=== PATIENT | male | born 1965 | race Caucasian/White ===

== ENCOUNTER 2018-01-09 12:37 | Emergency (ER) | payer OTHER, SELFPAY ==
[2018-01-09 12:38] VITALS: BP 138/81; PULSE 79; RESP 12; TEMP 36.9; BMI 26.6
--- NOTE | 2018-01-09 13:07 | ED.VISSUMM ---
- ER Visit Summary Date of Service: 01/09/18 Chief Complaint: [] Right thumb injury seen at [facility] urgent care History of Present Illness: The patient is a 52 M [] based he reports he jammed his right thumb into an object he had what sounds like a subungual hematoma involving the thumb nailbed he was seen in [facility] urgent care had x-rays that were negative, had trephination of nail bed he reports he has persistent swelling over the distal phalanx, he was not sure what to do so he came to the emergency room. 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 Physical Examination: [] The right thumb there is contusion over the distal phalanx the nail appears to have been trephinated there is no subungual hematoma the pad of the thumb is normal the IP joint flexion extension DIP joint flexion extension fully intact thumb opposition and full range of motion to the thumb without any discomfort but when he business support and opposes against the other digits he has pain there is no obvious instability deformity the skin is intact but contused over the distal phalanx neurovascular function to the hand in the hand fingers otherwise are unremarkable and normal the wrist is nontender Test Results: [] Emergency Department Course and Treatment: [] He assures me the x-ray was done and was negative I explained to him we could repeat the x-ray he does not wish to have that done there is no indication that he would require trephination is no signs of infection this appears to be a traumatic contusion I explained to him the concept of an occult injury at this time is placed in the thumb splint ice elevation he has pain meds using at home and to follow-up with Dr. olvera or orthopedics next few days for further management to evaluate for again possibility of occult injury Treatment Plan: [] Disposition: [] Stable home Impression: []rt thumb contusion This note was generated with [employer] dictation software. It may contain incorrect words, spelling, and punctuation that were not noted in review of the chart prior to signing ED Disposition - Plan for ED Patient: Chief Complaint: Wound Referrals: Care Physician,No Primary [Primary Care Provider] -
--- NOTE | 2018-01-09 13:10 | ED.DCSUM_ITS ---
- ER Visit Summary Date of Service: 01/09/18 Chief Complaint: [] Right thumb injury seen at [facility] urgent care History of Present Illness: The patient is a 52 M [] based he reports he jammed his right thumb into an object he had what sounds like a subungual hematoma involving the thumb nailbed he was seen in [facility] urgent care had x-rays that were negative, had trephination of nail bed he reports he has persistent swelling over the distal phalanx, he was not sure what to do so he came to the emergency room. 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 and opposes against the other digits he has pain there is no obvious instability deformity the skin is intact but contused over the distal phalanx neurovascular function to the hand in the hand fingers otherwise are unremarkable and normal the wrist is nontender Test Results: [] Emergency Department Course and Treatment: [] He assures me the x-ray was done and was negative I explained to him we could repeat the x-ray he does not wish to have that done there is no indication that he would require trephination is no signs of infection this appears to be a traumatic contusion I explained to him the concept of an occult injury at this time is placed in the thumb splint ice elevation he has pain meds using at home and to follow-up with Dr. olvera or orthopedics next few days for further management to evaluate for again possibility of occult injury Treatment Plan: [] Disposition: [] Stable home Impression: []rt thumb contusion This note was generated with [employer] dictation software. It may contain incorrect words, spelling, and punctuation that were not noted in review of the chart prior to signing ED Disposition - Plan for ED Patient: Chief Complaint: Wound Referrals: Care Physician,No Primary [Primary Care Provider] -
--- NOTE | 2018-01-09 13:10 | ED.DEP ---
ED Disposition - Plan for ED Patient: Chief Complaint: Wound Instructions: ED Contusion Finger Referrals: Care Physician,No Primary [Primary Care Provider] - Jovanni Becker MD [STAFF PHYSICIAN] - Henry Arteaga MD [STAFF PHYSICIAN] -
[2018-01-09 13:20] VITALS: BP 119/77; PULSE 81; RESP 17; O2SAT 96
== END 2018-01-09 13:31 | disposition home or self-care (01) ==
LOC: ED 13:30
PROVIDERS: Emergency Provider Emergency Medicine
DX: S60.011A Contusion of right thumb without damage to nail, initial encounter (principal); W22.8XXA Striking against or struck by other objects, initial encounter; Y93.9 Activity, unspecified; Y92.9 Unspecified place or not applicable; Y99.9 Unspecified external cause status; Z79.899 Other long term (current) drug therapy
CPT/HCPCS: 99282

== ENCOUNTER → 2018-01-15 08:26 | Outpatient (CLI) | payer OTHER, SELFPAY ==
--- NOTE | 2018-01-15 08:27 | RAD_ITS ---
STUDY: X-RAY - RIGHT HAND, ATTENTION FIRST FINGER REASON FOR EXAM: Male, 52 years old. Smash injury. Pain. TECHNIQUE: 3 view(s) of the finger were obtained. COMPARISON: None. FINDINGS: There is osteoarthrosis of the first carpometacarpal, metacarpal phalangeal and interphalangeal joints. There is a radiopaque foreign body projected dorsally at the DIP joint measuring approximately 3 mm in longest diameter best seen on the lateral view. There is soft tissue ossification of the soft tissues adjacent to the midportion of the distal phalanx. RAD/Finger(s) Min 2 Views IMPRESSION: Osteoarthritic changes with radiopaque foreign body and soft tissue ossification. No acute osseous abnormality. Electronically Signed: Julian Carver MD at 17:59 EDT , Service support ,
== END ==
PROVIDERS: Visit Provider Orthopaedic Surgery
DX: M79.644 Pain in right finger(s) (principal)
CPT/HCPCS: 73140

== ENCOUNTER 2018-02-02 15:00 | Outpatient (RCR) | payer OTHER, SELFPAY ==
--- NOTE | 2018-01-19 16:04 | HP.OTEVAL ---
Patient's Visit Information SAVANNA PEPE is a 52 year old M, referred to Occupational Therapy by Rowena Temple DO, with a diagnosis of right thumb nail injury hematoma. Date of Evaluation: 01/19/18 Occupational Therapist: Noris Scott, LEVI/Katelyn, CHT - Subjective Subjective: Pt states he had a right thumb injury- pt states he it his thumb against the bed of the truck about two weeks ago-pt states his finger began swelling and needed to have his thumb punctured and drained- pt states he is having difficulty writing- carring a 2-3 gallons- pt states he works at [email or web address] - pt would like to return to his PLOF - Pain right thumb 2 - ROM CMC: right 10 left 10 MP: right 35 left 60 IP: right 10 left 60 - Strength Senior Research Analyst: right 80# left 70# Lateral Pinch: right NT left 16# Tripod Pinch: right Nt left 18# - Edema Other: right IP 8.0 left 7.0 - Goals Goal:: pt will demo a tripod and lateral pinch at 5# or greater to return pt to PLOF with BADLS and IADLS by D/C Goal:: pt will demo a increase in pts functional ROM by 10 degrees for pt to return to writing ind. by d/c Goal:: pt will report pain no greater than 1/10 with use of right hand with BADLS and IADLS by d/c Goal:: pt will demo a reduction in right thumb edema by 1cm or greater to increase pts ease of BADLS and IADLS by d/c - Rehabilitation General Assessment: pt demo with swollen and sensitive right thumb with limited ROM - this decreases pt ind with use of right pinch and use of right hand for BADLS and IADLs- pt demo need for skilled OT services to initiate edema contorl- ROM and desensitization- pt will progress to PRE as able. Rehabilitation Potential: Good - Anticipated Interventions Anticipated Interventions: A/AAROM/PROM, Edema Control, Desensitization, Wound Care, Modalities - Visit Plan Frequency: 2-3x /Week Duration: 4 Weeks General Plan: OT will see pt 2-3 x week for 4 weeks- tx will work with AROM/PROM, edema control and desensitization- when able pt will progress to PRE. to return pt to PLOF TEXT: Thank you for the opportunity to evaluate your patient. For Medicare and Medicare HMO plans, please review the plan of care and approve it. It will need to be FAXED BACK to us at [phone] for Medicare purposes. Please let me know if there are questions or concerns regarding this plan of care. Physician Signature: Date:
--- NOTE | 2018-03-09 13:19 | HP.OT.NRP ---
HP - Discharge Summary - Patient Information SAVANNA PEPE was seen in my office for initial evaluation on 01/19/18. The following Plan of Care was established for this patient: Initial Frequency: 2-3x /Week Initial Duration: 4 Weeks Plan: pt to return if orthosis is unable to fit under his work glove - Anticipated Interventions Anticipated Interventions: A/AAROM/PROM, Edema Control, Desensitization, Wound Care, Modalities This patient was last seen in our office 02/18/18. Pertinent comments regarding their Occupational therapy will appear below: Pt was last seen for protective orthosis- following nail removal- pt stated his thumb was feeling well-pt was instructed to return to therapy for orthosis adj as needed. pt has not done so at this time and is D/C due not no further apts scheduled. At this point I will be discontinuing this patient from occupational therapy. I would be happy to see this patient again in the future if found appropriate by the physician. Thank you! Noris Scott, OTR/L, CHT
== END 2018-02-18 19:00 | disposition home or self-care (01) ==
LOC: OT 15:00
PROVIDERS: Family Provider Physician Assistant; PCP Physician Assistant; Visit Provider Orthopaedic Surgery
DX: S60.111D Contusion of right thumb with damage to nail, subsequent encounter (principal); L03.90 Cellulitis, unspecified
CPT/HCPCS: 97166; 97530; 97760

== ENCOUNTER 2018-02-10 15:07 | Inpatient (IN) | payer OTHER, SELFPAY ==
--- NOTE | 2018-02-10 10:08 | EKG12_ITS ---
Test Reason : PREOP Blood Pressure : / mmHG Vent. Rate : 067 BPM Atrial Rate : 067 BPM P-R Int : 154 ms QRS Dur : 094 ms QT Int : 372 ms P-R-T Axes : 018 016 010 degrees QTc Int : 393 ms Normal sinus rhythm Normal ECG When compared with ECG of 03-JAN-2017 01:07, No significant change was found Confirmed by KENNETH LAM, KERON ([id number]), sound editor SHOAIB BROOKS ([id number]) on 02/15/2018 3:01:48 PM Referred By: Rowena Temple Confirmed By:KERON COOPER MD
[2018-02-10 10:18] VITALS: BP 150/80; PULSE 72; RESP 14; TEMP 36.6; O2SAT 100; BMI 26.8
--- NOTE | 2018-02-10 12:40 | MISC_PTH ---
PATIENT: SAVANNA PEPE LOC: MS2 U#:[id number] AGE/SX: 52/M ROOM: [facility] RE02/10/[address]: Dr. Rowena Temple DO : 1965 BED: 1 DIS: 02/12/2018 SPEC #: [id number] RECD: 02/10/18 16:14 STATUS: BRANDEN LISA #: [id number] DE: 02/10/18 12:[address]: Rowena Temple DEPT: SURGICAL PATHOLOGY RECD BY: Jelani Mendoza ENTERED: 02/11/18 09:06 SP TYPE: [facility] [place] OTHR DR: AMADOU Escudero Tissues: A - Nail of thumb B - Bone of hand, NOS Procedures: Decalcification bone/plaque Special Stain Group I Surgery Specimen Level III AFB Stain (control) GMS Stain (control) HEADER OPERATION: Incision and drainage with thumbnail removal and bone removal PRE-OP DIAGNOSIS: Contusion of right thumb with damage to nail TISSUE SUBMITTED: A ? Right thumbnail, B ? Bone right thumb, rule out osteomyelitis MICROSCOPIC DIAGNOSIS A. Right thumbnail, excision: Focal acute inflammation. Negative for acid-fast bacilli and fungal organisms. See comment. B. Bone of right thumb, biopsy: Acute osteomyelitis. AM:meng 02/17/18 COMMENT A. AFB and GMS stains with matched controls were used in the evaluation of this case. MICROSCOPIC DESCRIPTION Slides are reviewed. GROSS DESCRIPTION A - Received in fixative is one container labeled with the patient's name and designated right thumbnail. The specimen consists of a piece of fuchs nail measuring 2 x 1.6 cm and 0.1 cm in thickness. The specimen is serially sectioned and submitted entirely in one cassette. B - Received in fixative is one container labeled with the patient's name and designated bone right thumb to rule out osteomyelitis. The specimen consists of a piece of bone measuring 1 x 0.5 x 0.3 cm. The entire specimen is submitted in one cassette after decalcification. / SJ:meng 02/11/18 TC:2 CPT: 82897, 13092 x2, 54398 x2
--- NOTE | 2018-02-10 13:55 | PCM.DC.ORTHO ---
Discharge Diet: No Restrictions - follow up on thursday with wound care for dressing change, call for appt today, see me in office next week, call with concerns Discharge Activity: May Not Drive May shower in (days): 1 Ice area for (Minutes): 20 - Every hour while awake. Weight Bearing Status: Weight bearing as tolerated Keep extremity elevated above heart level: Operative Extremity Call your doctor if your incision/area has: Continuous Slow Oozing, Sudden Increased Bleeding, Increased Pain/ Swelling, Increased Redness, Foul Smelling Discharge Call your doctor if you observe: Fever of 101 or Higher, Coldness, Increased Pain, Numbness or Tingling, Change in Color, Calf discomfort Allergies/Adverse Reactions: Allergies No Known Allergies Allergy (Verified 02/09/18 16:00) Primary Care Physician: Radha Lpoez PA [Primary Care Provider] - Please Follow Up With: Rowena Temple, - [phone]
--- NOTE | 2018-02-10 13:56 | OP.PCM_ITS ---
Report of Operation Date of Procedure: 02/10/18 Pre-Operative Diagnosis: right thumb cellulitis/infection/osteomyelitis Post-Operative Diagnosis: same Surgery/Procedure Performed:: right thumbnail removal/ nailbed debridement, bone debridement/excision Type of Anesthesia:: Kristin Watts Anesthesiologist: Constantine Baig Fluids Replaced: 800cc lr Description of Procedure: Preop note Is a 52-year-old male who had an injury to his right thumb developed a hematoma subungual hematoma was seen first at the [facility] urgent care and then was not improving and so he went to the emergency room. Please note that on the initial visit to the [facility] urgent care patient had needle place to decompress hematoma and outpatient antibiotics, and when patient went to the emergency room he was evaluated, and told to follow up with specialist. patient was seen in office, still on antibiotics and referred to OT for hand soaks/ debridement. Patient was noncompliant with visits and showed up in office about 2 weeks later (yesterday) with increased redness and fluctuence and decision was made to take him to the OR following day for evaluation/washout/ debridement. Wrist benefits and alternatives surgery discussed with patient. Patient stated he did not know how he was getting get to the operating room was not sure if he was even get to come to the hospital the discussion with patient was that he would either come tomorrow for a debridement and irrigation and wound management versus an amputation on his choosing. Patient aware of all risks associated with his ongoing thumb infection we will proceed with above- mentioned. Operative note Patient seen and examined preoperative holding area. Right thumb was marked. Patient brought to the operating room placed supine on the operating table. Right thumb right upper extremity had Fernando Salinas block placed elevated some was not exsanguinated with rest the arm was exsanguinated and pressure was raised to 50 torr. We carefully remove the nail and sent it to pathology we did some debridement we sent that to pathology and took some initial cultures. After removing the nail and doing some debridement we found a questionable track from distal nailbed to the distal phalanx. this is further debrided and there is a obvious track down to bone. The bone was quite necrotic and was removed and excised and sent to pathology for further evaluation for possible osteomyelitis. At this point we did give antibiotics. The nail bed was irrigated comes amounts of sterile saline. Please note we did express the incision and did have a slight amount of pus that came from the subungual area which was where the tract was that was distal tracking down to the distal phalanx. Please note that this distal phalanx which was the bone that was removed and sent to pathology. We also swabbed and sent for cultures of the subungual pus that we expressed. Again we irrigated debrided the area with copious amounts sterile saline. Applied sterile dressing patient was admitted for IV antibiotics infectious disease and wound care consult. This was discussed with patient at bedside. Patient aware aware of plan. Patient was transferred to the recovery room in stable condition. No complications noted. Next Postoperative note Admit for IV antibiotics ID and cultures pending next Wound care CBC sed rate CRP Await final cultures to determine IV antibiotics versus p.o. antibiotics for discharge and whether affecting bone This note was generated with [employer] dictation software. It may contain incorrect words, spelling, and punctuation that were not noted in checking the note before signing. - Admit VTE Documentation VTE Present on Admission: Yes VTE Mechan Device Prophylaxis: SCD's
[2018-02-10] MEDS: Cefazolin 2 GM in 0.9% Normal Saline 100 ML IV (14:06)
[2018-02-10] MEDS: Mupirocin Ointment 22gm Tube 1 APPLIC (14:20)
[2018-02-10 14:33] VITALS: BP 124/86; BP 150/80; PULSE 74; RESP 18; TEMP 36.4; O2SAT 97
[2018-02-10 14:45] VITALS: BP 139/92; BP 150/80; PULSE 64; RESP 18; O2SAT 100
[2018-02-10 15:00] VITALS: BP 137/95; BP 150/80; PULSE 61; RESP 18; TEMP 36.2; O2SAT 100
[2018-02-10 15:24] LABS: Absolute Lymphocyte Count 1.46 X10^3/ul (0.83-4.51); Basophil# 0.03 X10^3/uL; Basophil% 0.8 % (0-1); Eosinophil# 0.09 X10^3/uL; Eosinophils% 2.3 % (0-5); Hematocrit 31.7 % (40-54); Hemoglobin 10.5 g/dl (13.0-16.5); Lymphocyte # 1.46 X10^3/ul (4.0); Lymphocyte % 37.6 % (19-41); Mean Corp Hgb Conc 33.1 g/gl (32-36); Mean Corpuscular Volume 87.6 fL (80-94); Mean Platelet Vol. 9.1 fl (6.2-12.0); Monocyte# 0.35 X10^3/uL; Neutrophil # 1.95 X10^3/uL (2.7-7.7); Neutrophil % 50.3 % (47-70); Platelet Count 177 K/mm3 (150-450); RBC Distribution Width CV 13.2 % (11.6-14.6); RBC Distribution Width SD 42.4 fl (35.1-43.9); Red Blood Count 3.62 M/mm3 (4.6-6.2); White Blood Count 3.9 K/mm3 (4.4-11.0)
--- NOTE | 2018-02-10 15:31 | PCM.HP.STD ---
Problem List (1) Subungual abscess Status: Acute (2) Cellulitis Status: Acute Qualifiers: Site of cellulitis: extremity Site of cellulitis of extremity: finger Laterality: right Qualified Code(s): L03.011 - Cellulitis of right finger (3) Nail avulsion, finger Status: Acute Qualifiers: Encounter type: sequela Qualified Code(s): S61.309S - Unspecified open wound of unspecified finger with damage to nail, sequela (4) Osteomyelitis Status: Acute Qualifiers: Osteomyelitis type: subacute Osteomyelitis location: hand Laterality: right Qualified Code(s): M86.241 - Subacute osteomyelitis, right hand History of Present Illness Date of Admission: 02/10/18 The patient is a 52 year old M who was taken to the OR today for washout/debridement of subungual hematoma/ cellulitis. Patient initially had injury to right thumb about 3 weeks ago and was initially seen by [facility] urgent care, decompressed subungual hematoma, placed on antibiotics and sent home. Patient then went to [facility] ER and patient with increased pain and 'unhappy with how thumb looked,' told to follow up with specialist and was discharged. Patient then seen in our clinic with decreased pain, slight erythema and minimal drainage on antibiotics. Patient was instructed /given a prescription to be seen by OT for debridements/ wound care and follow up in our office. Patient was noncompliant with OT, seen in office yesterday with increased erythema and fluctuence and decision was made to take him to OR for debridement/washout. Patient denies fever, chills, other issues. Pain localized to right thumb. see chart for further details. 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 Surgical History: no surgical history Psychiatric History: No pertinent psych hx Lives: Alone Smoking Status: Never smoker Tobacco Use: Non-smoker Alcohol: None Drugs: None - *Family History Maternal History Items: No pertinent history Review of Systems Constitutional: Denies: Chills, Fever, Weight Change HEENT: Denies: Head Aches, Sinus Congestion, Sinus Drainage Cardiovascular: Denies: Chest Pain, Palpitations Respiratory: Denies: Cough, Shortness of breath at rest, Sputum production Gastrointestinal: Denies: Abdominal Pain, Nausea, Vomiting Genitourinary: Denies: Dysuria Musculoskeletal: Reports: Hand Pain. Denies: Joint Pain, Joint Tenderness Skin: Denies: Rash, Wounds Neurological: Denies: Numbness, Tingling, Focal weakness Psychiatric: Denies: Anxiety, Depression, Homicidal Ideations, Suicidal Ideations Hematologic/ Lymphatic: Denies: Easy Bruising, Easy Bleeding VTE Information - Inpt Only VTE Present on Admission: No VTE Mechan Device Prophylaxis: SCD's VTE Pharm Prophylaxis ordered?: No Reason prophylaxis not ordered:: Treatment Not Indicated - ambulating in hospital/ ue surgery - Physical Exam General: Alert, Oriented x3, Cooperative HEENT: Atraumatic, PERRLA, EOMI, Normocephalic Neck: Supple, No JVD, Negative Carotid Bruits Lungs: Clear to auscultation, Normal air movement Cardiovascular: Regular rate, No murmurs Abdomen: Bowel Sounds Present, Soft, Non Tender Extremities: No edema, Capillary Refill Less than 3 Seconds Skin: Ulcer/ Wound - left thumb crusted/ erythema to level of mcp joint, no pain with pip or mcp flex/ex Musculoskeletal: Tenderness Neurological: Cranial nerves II-XII grossly intact Psych/Mental Status: Normal Affect, Appropriate Vital Signs Temp Pulse Resp BP Pulse Ox 97.2 F L 61 18 137/95 H 100 02/10/18 15:00 02/10/18 15:00 02/10/18 15:00 02/10/18 15:00 02/10/18 15:00 Oxygen Delivery Method Room Air Weight: 161 lb 6.054 oz Body Mass Index (BMI) 26.8 Intake and Output for Last 24 Hours 02/08/18 02/09/18 02/10/18 23:59 23:59 23:59 Intake Total 1000 / 1000 Balance 1000 / 1000 Laboratory Tests Past 24 Hrs 02/10/18 02/10/18 15:15 15:15 WBC Pending RBC Pending Hgb Pending Hct Pending MCV Pending MCH Pending MCHC Pending RDW Pending RDW Differential Pending Plt Count Pending Neut % (Auto) Pending Absolute Neuts (auto) Pending Total Counted Pending ESR Pending Sodium Pending Potassium Pending Chloride Pending Carbon Dioxide Pending Anion Gap Pending BUN Pending Creatinine Pending Est GFR (MDRD) Af Amer Pending Est GFR (MDRD) Non-Af Pending BUN/Creatinine Ratio Pending Glucose Pending Calcium Pending C-React Prot Ext Range Pending Assessment/Plan All Active Problems Subungual abscess (Acute) Cellulitis (Acute) Nail avulsion, finger (Acute) Osteomyelitis (Acute) Contusion of right thumb with damage to nail (Acute) Patient with injury to right thumb with subsequent sub-ungual hematoma that was decompressed at urgent care ,placed on antibiotics, was seen in our office and sent to occupational therapy- was noncompliant with occupational therapy re-seen yesterday and noted increased erythema and fluctuance and decision was made to taken to the OR today. In OR today noted a subungual abscess that extended and tracked down to his distal phalanx. We sent bone, soft tissue, and culture swabs and are awaiting results ID consult- called ID consult in 02/10 1430 Wound care consult Ancef for 2 doses pending change of antibiotic per ID recommendation Compressive dressings and dressing changes per wound care Sed rate CRP BMP and CBC sent This note was generated with [employer] dictation software. It may contain incorrect words, spelling, and punctuation that were not noted in checking the note before signing.
[2018-02-10 15:37] LABS: Anion Gap 6 (5-15); BUN 26 mg/dL (7-18); BUN/Creat Ratio 24.5 RATIO (10-20); CRP < 2.90 mg/L (0.0-3.0); Calcium,Total 8.4 mg/dL (8.5-10.1); Chloride 114 mmol/L (98-107); Creatinine, Serum 1.06 mg/dL (0.70-1.30); EST Glomerular Filtration Rate 78 mL/min (>60); Est Glom Filt Rate - Afr Amer 94 mL/min (>60); Estimated Creatinine Clearance 70.91 ml/min; Glucose 73 mg/dL (74-106); Potassium 4.3 mmol/L (3.5-5.1); Sodium Level 147 mmol/L (136-145)
[2018-02-10 15:38] VITALS: BP 149/89; PULSE 59; RESP 16; TEMP 36.2; O2SAT 100; BMI 26.8
--- NOTE | 2018-02-10 15:40 | HP.PCM_ITS ---
Problem List (1) Subungual abscess Status: Acute (2) Cellulitis Status: Acute Qualifiers: Site of cellulitis: extremity Site of cellulitis of extremity: finger Laterality: right Qualified Code(s): L03.011 - Cellulitis of right finger (3) Nail avulsion, finger Status: Acute Qualifiers: Encounter type: sequela Qualified Code(s): S61.309S - Unspecified open wound of unspecified finger with damage to nail, sequela (4) Osteomyelitis Status: Acute Qualifiers: Osteomyelitis type: subacute Osteomyelitis location: hand Laterality: right Qualified Code(s): M86.241 - Subacute osteomyelitis, right hand History of Present Illness Date of Admission: 02/10/18 The patient is a 52 year old M who was taken to the OR today for washout/ debridement of subungual hematoma/ cellulitis. Patient initially had injury to right thumb about 3 weeks ago and was initially seen by [facility], decompressed subungual hematoma, placed on antibiotics and sent home. Patient then went to [facility] ER and patient with increased pain and 'unhappy with how thumb looked,' told to follow up with specialist and was discharged. Patient then seen in our clinic with decreased pain, slight erythema and minimal drainage on antibiotics. Patient was instructed /given a prescription to be seen by OT for debridements/ wound care and follow up in our office. Patient was noncompliant with OT, seen in office yesterday with increased erythema and fluctuence and decision was made to take him to OR for debridement/ washout. Patient denies fever, chills, other issues. Pain localized to right thumb. see chart for further details. 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 Surgical History: no surgical history Psychiatric History: No pertinent psych hx Lives: Alone Smoking Status: Never smoker Tobacco Use: Non-smoker Alcohol: None Drugs: None - *Family History Maternal History Items: No pertinent history Review of Systems Constitutional: Denies: Chills, Fever, Weight Change HEENT: Denies: Head Aches, Sinus Congestion, Sinus Drainage Cardiovascular: Denies: Chest Pain, Palpitations Respiratory: Denies: Cough, Shortness of breath at rest, Sputum production Gastrointestinal: Denies: Abdominal Pain, Nausea, Vomiting Genitourinary: Denies: Dysuria Musculoskeletal: Reports: Hand Pain. Denies: Joint Pain, Joint Tenderness Skin: Denies: Rash, Wounds Neurological: Denies: Numbness, Tingling, Focal weakness Psychiatric: Denies: Anxiety, Depression, Homicidal Ideations, Suicidal Ideations Hematologic/ Lymphatic: Denies: Easy Bruising, Easy Bleeding VTE Information - Inpt Only VTE Present on Admission: No VTE Mechan Device Prophylaxis: SCD's VTE Pharm Prophylaxis ordered?: No Reason prophylaxis not ordered:: Treatment Not Indicated - ambulating in hospital/ ue surgery - Physical Exam General: Alert, Oriented x3, Cooperative HEENT: Atraumatic, PERRLA, EOMI, Normocephalic Neck: Supple, No JVD, Negative Carotid Bruits Lungs: Clear to auscultation, Normal air movement Cardiovascular: Regular rate, No murmurs Abdomen: Bowel Sounds Present, Soft, Non Tender Extremities: No edema, Capillary Refill Less than 3 Seconds Skin: Ulcer/ Wound - left thumb crusted/ erythema to level of mcp joint, no pain with pip or mcp flex/ex Musculoskeletal: Tenderness Neurological: Cranial nerves II-XII grossly intact Psych/Mental Status: Normal Affect, Appropriate Vital Signs Temp Pulse Resp BP Pulse Ox 97.2 F L 61 18 137/95 H 100 02/10/18 15:00 02/10/18 15:00 02/10/18 15:00 02/10/18 15:00 02/10/18 15:00 Oxygen Delivery Method Room Air Weight: 161 lb 6.054 oz Body Mass Index (BMI) 26.8 Intake and Output for Last 24 Hours 02/08/18 02/09/18 02/10/18 23:59 23:59 23:59 Intake Total 1000 / 1000 Balance 1000 / 1000 Laboratory Tests Past 24 Hrs 02/10/18 02/10/18 15:15 15:15 WBC Pending RBC Pending Hgb Pending Hct Pending MCV Pending MCH Pending MCHC Pending RDW Pending RDW Differential Pending Plt Count Pending Neut % (Auto) Pending Absolute Neuts (auto) Pending Total Counted Pending ESR Pending Sodium Pending Potassium Pending Chloride Pending Carbon Dioxide Pending Anion Gap Pending BUN Pending Creatinine Pending Est GFR (MDRD) Af Amer Pending Est GFR (MDRD) Non-Af Pending BUN/Creatinine Ratio Pending Glucose Pending Calcium Pending C-React Prot Ext Range Pending Assessment/Plan All Active Problems Subungual abscess (Acute) Cellulitis (Acute) Nail avulsion, finger (Acute) Osteomyelitis (Acute) Contusion of right thumb with damage to nail (Acute) Patient with injury to right thumb with subsequent sub-ungual hematoma that was decompressed at urgent care ,placed on antibiotics, was seen in our office and sent to occupational therapy- was noncompliant with occupational therapy re- seen yesterday and noted increased erythema and fluctuance and decision was made to taken to the OR today. In OR today noted a subungual abscess that extended and tracked down to his distal phalanx. We sent bone, soft tissue, and culture swabs and are awaiting results ID consult- called ID consult in 02/10 1430 Wound care consult Ancef for 2 doses pending change of antibiotic per ID recommendation Compressive dressings and dressing changes per wound care Sed rate CRP BMP and CBC sent This note was generated with [employer] dictation software. It may contain incorrect words, spelling, and punctuation that were not noted in checking the note before signing.
[2018-02-10 15:43] LABS: POSITIVE COUNT NO; POSITIVE DIFFERENTIAL NO; POSITIVE MORPHOLOGY NO
[2018-02-10 15:48] LABS: Erythrocyte Sedimentation Rate 13 mm/hr (0-20)
[2018-02-10] MEDS: HYDROcodone Bitartrate/Apap 5/325 Tablet PO (17:30)
[2018-02-10 20:31] VITALS: BP 133/80; PULSE 55; RESP 16; TEMP 36.5; O2SAT 99
[2018-02-10] MEDS: Cefazolin 1 GM/50 ML BAG IV (21:44)
[2018-02-11 02:33] VITALS: BP 136/78; PULSE 55; RESP 16; TEMP 36.4; O2SAT 100
[2018-02-11] MEDS: HYDROcodone Bitartrate/Apap 5/325 Tablet PO ×2 (02:42→09:32)
[2018-02-11] MEDS: Cefazolin 1 GM/50 ML BAG IV (05:12)
[2018-02-11 09:31] VITALS: BP 129/66; PULSE 62; RESP 16; TEMP 36.6; O2SAT 100
--- NOTE | 2018-02-11 09:32 | NURSING ---
wound photo: right thumb
--- NOTE | 2018-02-11 10:49 | PCM.RX.CS ---
Consult Pharmacy has been consulted to manage selected antiobiotic: Vancomycin Type of Consult: New start Suspected Infection: Osteomyelitis Labs: Sodium 147 mmol/L (136-145) H 02/10/18 15:15 Potassium 4.3 mmol/L (3.5-5.1) 02/10/18 15:15 Chloride 114 mmol/L (98-107) H 02/10/18 15:15 Carbon Dioxide 27.0 mmol/L (21.0-32.0) 02/10/18 15:15 Anion Gap 6 (5-15) 02/10/18 15:15 BUN 26 mg/dL (7-18) H 02/10/18 15:15 Creatinine 1.06 mg/dL (0.70-1.30) 02/10/18 15:15 Est GFR (MDRD) Af Amer 94 mL/min (>60) 02/10/18 15:15 Est GFR (MDRD) Non-Af 78 mL/min (>60) 02/10/18 15:15 BUN/Creatinine Ratio 24.5 RATIO (10-20) H 02/10/18 15:15 Glucose 73 mg/dL (74-106) L 02/10/18 15:15 Weight used for dosin.2 kg Estimated Creatinine Clearance: 68 ML/MIN Goal Trough: 15-20 mcg/mL Pharmacy Plan for Drug Dosing: Patient reviewed for starting vancomycin per consult. Patient Cr 1.06 with estimated CrCl of 68. Patient being treated for cellulitis/osteo of finger. Will begin 1Gm IV q12h (~15mg/kg) and obtain trough level before 4th dose. Pharmacy Service will continue to monitor and adjust dosing as required.
--- NOTE | 2018-02-11 12:07 | PCM.HP.ID ---
Problem List (1) Osteomyelitis Status: Acute Qualifiers: Osteomyelitis type: unspecified type Osteomyelitis location: other site Qualified Code(s): M86.9 - Osteomyelitis, unspecified Reason for Consult: osteo Consulted by: Dr. Temple History of Present Illness: The patient is a 52 year old M who smashed his R thumb on his truck about a month ago. Wound was not contaminated with dirt. Had swelling, pain, redness; went to [facility], needle was put into the nail, pus/blood was drained. Given 10 days of bactrim. Came to ED here 01/09 and referred to ortho. Saw Dr. Temple, thumb was improving, but pt did not follow-up as requested. Thumb with no further drainage and had progressive symptoms. No fever or chills. Due to worsening, taken to OR yesterday 02/10 for debridement with pus and soft bone seen at tip of thumb. Full ROS performed and neg except as noted above. - Medical History Allergies/Adverse Reactions: Allergies No Known Allergies Allergy (Verified 02/09/18 16:00) Home Medications: Ambulatory Orders Medication Instructions Recorded Hydrocodone Bitart/Apap 5-325 1 - 2 tablet PO Q6H PRN PRN 4 Days 02/10/18 [[place] 5MG-325MG] #40 tablet - Social History Tobacco Use: non-smoker Vital Signs Temp Pulse Resp BP Pulse Ox 97.8 F 62 16 129/66 H 100 02/11/18 09:31 02/11/18 09:31 02/11/18 09:31 02/11/18 09:31 02/11/18 09:31 Oxygen Delivery Method Room Air Weight: 73.2 kg Body Mass Index (BMI) 26.8 Microbiology Past 72 Hours 02/10/18 14:00 Gram Stain - Final Tissue - Hand 02/10/18 14:00 Gram Stain - Final Wound Drainage - Hand 02/10/18 14:00 Gram Stain - Final Wound Abcess - Right Hand Laboratory Tests Past 24 Hrs 02/10/18 02/10/18 15:15 15:15 WBC 3.9 L RBC 3.62 L Hgb 10.5 L Hct 31.7 L MCV 87.6 MCH 29.0 MCHC 33.1 RDW 13.2 RDW Differential 42.4 Plt Count 177 MPV 9.1 Immature Gran % (Auto) 0.000 Neut % (Auto) 50.3 Lymph % (Auto) 37.6 Delta % (Auto) 9.0 Eos % (Auto) 2.3 Baso % (Auto) 0.8 Absolute Neuts (auto) 2.0 Absolute Lymphs (auto) 1.46 Total Counted Not Reportable ESR 13 Sodium 147 H Potassium 4.3 Chloride 114 H Carbon Dioxide 27.0 Anion Gap 6 BUN 26 H Creatinine 1.06 Estim Creat Clear Calc 70.91 Est GFR (MDRD) Af Amer 94 Est GFR (MDRD) Non-Af 78 BUN/Creatinine Ratio 24.5 H Glucose 73 L Calcium 8.4 L C-React Prot Ext Range < 2.90 - Other Studies Radiology: [] reviewed Other Studies: [] Route of nutrition/ use of supplements: [] Nutritional Intake: [] IV Site: [] Aranda Catheter: [] - Physical Exam General: Alert, Oriented x3, Cooperative, No apparent distress HEENT: Atraumatic, PERRLA, EOMI Neck: Supple, No Nodes Lungs: Clear to auscultation, Normal air movement Cardiovascular: Regular rate, Regular Rhythm Abdomen: Bowel Sounds Present, Soft, Non Tender, Non-Distended Extremities: No edema Skin: Incision - R thumb wrapped, reviewed photo IV Site: Peripheral, without redness Musculoskeletal: No Tenderness to Palpation of Joints or Extremities Neurological: Cranial nerves II-XII grossly intact - Assessment/Plan Antibiotics: [] Assessment/Plan: [] Active and Suspected Problems Subungual abscess (Acute) Cellulitis (Acute) Nail avulsion, finger (Acute) Osteomyelitis (Acute) R thumb osteomyelitis - 01/07/18 wound cx at [facility] urgent care (+) for strep intermedius. Now s/p OR debridement 02/[address] Temple. Surg cx here showing heavy GPCs. Covering with vanc and cefazolin. Plan on d/c home on 6 week course of po abx, await further cx data. Will follow, thank you, D/w Dr. Temple.
--- NOTE | 2018-02-11 12:52 | PN.ORTHO_ITS ---
Patient Problems: Active and Suspected Problems Subungual abscess (Acute) Cellulitis (Acute) Nail avulsion, finger (Acute) Osteomyelitis (Acute) - Physical Exam General: Alert, Oriented x3, Cooperative HEENT: Atraumatic, PERRLA, EOMI, Normocephalic Neck: Supple, No JVD, Negative Carotid Bruits Lungs: Clear to auscultation, Normal air movement Cardiovascular: Regular rate, No murmurs Abdomen: Bowel Sounds Present, Soft, Non Tender Extremities: No edema, Capillary Refill Less than 3 Seconds Skin: No rashes, No breakdown Musculoskeletal: No Tenderness to Palpation of Joints or Extremities Neurological: Cranial nerves II-XII grossly intact Psych/Mental Status: Normal Affect, Appropriate Vital Signs Temp Pulse Resp BP Pulse Ox 97.8 F 62 16 129/66 H 100 02/11/18 09:31 02/11/18 09:31 02/11/18 09:31 02/11/18 09:31 02/11/18 09:31 Oxygen Delivery Method Room Air Weight: 161 lb 6.054 oz Body Mass Index (BMI) 26.8 Intake and Output for Last 24 Hours 02/09/18 02/10/18 02/11/18 23:59 23:59 23:59 Intake Total 1150 / 1150 1061 / 1061 Output Total 900 / 900 950 / 950 Balance 250 / 250 111 / 111 Microbiology Past 72 Hours 02/10/18 14:00 Gram Stain - Final Tissue - Hand Wound Culture - Preliminary Staphylococcus aureus 02/10/18 14:00 Gram Stain - Final Wound Drainage - Hand Wound Culture - Preliminary Staphylococcus aureus 02/10/18 14:00 Gram Stain - Final Wound Abcess - Right Hand Wound Culture - Preliminary Staphylococcus aureus Laboratory Tests Past 24 Hrs 02/10/18 02/10/18 15:15 15:15 WBC 3.9 L RBC 3.62 L Hgb 10.5 L Hct 31.7 L MCV 87.6 MCH 29.0 MCHC 33.1 RDW 13.2 RDW Differential 42.4 Plt Count 177 MPV 9.1 Immature Gran % (Auto) 0.000 Neut % (Auto) 50.3 Lymph % (Auto) 37.6 [place] % (Auto) 9.0 Eos % (Auto) 2.3 Baso % (Auto) 0.8 Absolute Neuts (auto) 2.0 Absolute Lymphs (auto) 1.46 Total Counted Not Reportable ESR 13 Sodium 147 H Potassium 4.3 Chloride 114 H Carbon Dioxide 27.0 Anion Gap 6 BUN 26 H Creatinine 1.06 Estim Creat Clear Calc 70.91 Est GFR (MDRD) Af Amer 94 Est GFR (MDRD) Non-Af 78 BUN/Creatinine Ratio 24.5 H Glucose 73 L Calcium 8.4 L C-React Prot Ext Range < 2.90 Medical Necessity - Tobacco Use Smoking Status: Never smoker Assessment/Plan Active and Suspected Problems Subungual abscess (Acute) Cellulitis (Acute) Nail avulsion, finger (Acute) Osteomyelitis (Acute)
[2018-02-11] MEDS: Cefazolin 2 GM in 0.9% Normal Saline 100 ML IV ×2 (13:42→21:54)
[2018-02-11 14:53] VITALS: BP 122/67; PULSE 64; RESP 18; TEMP 36.2; O2SAT 100; O2SAT 98
[2018-02-11] MEDS: 0.9% NaCl Peripheral Flush Adult/Peds IV (17:31)
[2018-02-11 21:43] VITALS: BP 124/77; PULSE 61; RESP 18; TEMP 36.5; O2SAT 98
[2018-02-12 03:45] VITALS: BP 121/79; PULSE 69; RESP 18; TEMP 36.4; O2SAT 100
[2018-02-12] MEDS: Cefazolin 2 GM in 0.9% Normal Saline 100 ML IV (05:50)
[2018-02-12] MEDS: HYDROcodone Bitartrate/Apap 5/325 Tablet PO (07:02)
--- NOTE | 2018-02-12 08:21 | PCM.PN.ORT ---
Patient Problems: Active and Suspected Problems Subungual abscess (Acute) Cellulitis (Acute) Nail avulsion, finger (Acute) Osteomyelitis (Acute) - Physical Exam General: Alert, Oriented x3, Cooperative HEENT: Atraumatic, PERRLA, EOMI, Normocephalic Neck: Supple, No JVD, Negative Carotid Bruits Lungs: Clear to auscultation, Normal air movement Cardiovascular: Regular rate, No murmurs Abdomen: Bowel Sounds Present, Soft, Non Tender Extremities: No edema, Capillary Refill Less than 3 Seconds Skin: No rashes, No breakdown Musculoskeletal: Tenderness Neurological: Cranial nerves II-XII grossly intact Psych/Mental Status: Normal Affect, Appropriate Vital Signs Temp Pulse Resp BP Pulse Ox 97.5 F L 69 18 121/79 H 100 02/12/18 03:45 02/12/18 03:45 02/12/18 03:45 02/12/18 03:45 02/12/18 03:45 Oxygen Delivery Method Room Air Weight: 161 lb 6.054 oz Body Mass Index (BMI) 26.8 Intake and Output for Last 24 Hours 02/10/18 02/11/18 02/12/18 23:59 23:59 23:59 Intake Total 1150 / 1150 1061 / 1061 1157 / 1157 Output Total 900 / 900 950 / 950 Balance 250 / 250 111 / 111 1157 / 1157 Microbiology Past 72 Hours 02/10/18 14:00 Gram Stain - Final Tissue - Hand Wound Culture - Preliminary Staphylococcus aureus Anaerobic Culture - Preliminary Checking for anaerobes, further studies to follow. 02/10/18 14:00 Gram Stain - Final Wound Drainage - Hand Wound Culture - Preliminary Staphylococcus aureus Anaerobic Culture - Preliminary Checking for anaerobes, further studies to follow. 02/10/18 14:00 Gram Stain - Final Wound Abcess - Right Hand Wound Culture - Preliminary Staphylococcus aureus Anaerobic Culture - Preliminary Checking for anaerobes, further studies to follow. Medical Necessity - Tobacco Use Smoking Status: Never smoker Assessment/Plan Active and Suspected Problems Subungual abscess (Acute) Cellulitis (Acute) Nail avulsion, finger (Acute) Osteomyelitis (Acute) Patient with injury to right thumb with subsequent sub-ungual hematoma that was decompressed at urgent care ,placed on antibiotics, was seen in our office and sent to occupational therapy for debridement/ wound care- was noncompliant with occupational therapy re-seen and noted increased erythema and fluctuance and decision was made to taken to the OR today. In OR noted a subungual abscess that extended and tracked down to his distal phalanx. pod 2 s/p i&d right thumb , nail removal, debridement and bone excision We sent bone, soft tissue, and culture swabs and are awaiting results ID consult- called ID consult in 02/10 1430 Wound care greatly appreciated vanco/ancef per id recommendation Compressive dressings and dressing changes per wound care Sed rate CRP BMP and CBC This note was generated with [employer] dictation software. It may contain incorrect words, spelling, and punctuation that were not noted in checking the note before signing.
--- NOTE | 2018-02-12 08:23 | PCM.DC.SUM ---
Discharge Date and Diagnosis - Problem List Patient Problems: Active and Suspected Problems Subungual abscess (Acute) Cellulitis (Acute) Nail avulsion, finger (Acute) Osteomyelitis (Acute) Date of Admission: 02/10/18 - Primary Discharge Diagnosis Active and Suspected Problems Subungual abscess (Acute) Cellulitis (Acute) Nail avulsion, finger (Acute) Osteomyelitis (Acute) Hospital Course and Treatment Consultations 02/10/18 14:28 Consult: Onc/Wound/wage conciliator Routine Comment: left thumb infection/ track down to bone Reason for Consult:: see above Procedures: - - right thumb nail removal, nailbed/tissue debridement, bone excision Summary of Care Provided: The patient is a 52 year old M [] Patient is a 52 yo male with injury to right thumb with subsequent sub-ungual hematoma that was decompressed at urgent care , placed on antibiotics, was seen in our office and sent to occupational therapy for debridement/ wound care- was noncompliant with occupational therapy re-seen and noted increased erythema and fluctuance and decision was made to taken to the OR 02/10. In OR noted a subungual abscess that extended and tracked down to his distal phalanx. s/p i&d right thumb , nail removal, debridement and bone excision We sent bone, soft tissue, and culture swab and patient placed on vanco/ ancef per ID consult. Wound care evaluated patient, changed dressing and will set up postop wound center appt. Compressive dressings and dressing changes per wound care. follow up in my office next week. patient sensitivities came back and ID rec bactrim 6 wks. pt d/damon home with instructions to follow u w wound care next week and in my office next week as well. Sed rate CRP BMP and CBC ordered, normal. This note was generated with [employer] dictation software. It may contain incorrect words, spelling, and punctuation that were not noted in checking the note before signing. Discharge Diet: No Restrictions - follow up on thursday with wound care for dressing change, call for appt today, see me in office next week, call with concerns Discharge Activity: May Not Drive May shower in (days): 1 Ice area for (Minutes): 20 - Every hour while awake. Weight Bearing Status: Weight bearing as tolerated Keep extremity elevated above heart level: Operative Extremity Call your doctor if your incision/area has: Continuous Slow Oozing, Sudden Increased Bleeding, Increased Pain/ Swelling, Increased Redness, Foul Smelling Discharge Call your doctor if you observe: Fever of 101 or Higher, Coldness, Increased Pain, Numbness or Tingling, Change in Color, Calf discomfort Home Medications: Medications to take at Discharge Hydrocodone Bitart/Apap 5-325 [[place] 5MG-325MG] 1 - 2 tablet PO Q6H PRN PRN 4 Days #40 tablet 02/10/18 Smz/Tmp Ds [Bactrim Ds] 1 tab PO BID 40 Days #80 tab 02/12/18 Following Prescrptions Were Given to Patient: Hydrocodone Bitart/Apap 5-325 [[place] 5MG-325MG] 1 - 2 tablet PO Q6H PRN PRN 4 Days #40 tablet PRN Reason: Pain Smz/Tmp Ds [Bactrim Ds] 1 tab PO BID 40 Days #80 tab Primary Care Physician: Radha Lopez PA [Primary Care Provider] - Please Follow Up With: Rowena Temple, - [phone] Medical Necessity - Tobacco Use Smoking Status: Never smoker Meaningful Use Info Meaningful Use Diagnoses (Choose all that apply): None applicable
--- NOTE | 2018-02-12 08:28 | DS.PCM_ITS ---
Discharge Date and Diagnosis - Problem List Patient Problems: Active and Suspected Problems Subungual abscess (Acute) Cellulitis (Acute) Nail avulsion, finger (Acute) Osteomyelitis (Acute) Date of Admission: 02/10/18 - Primary Discharge Diagnosis Active and Suspected Problems Subungual abscess (Acute) Cellulitis (Acute) Nail avulsion, finger (Acute) Osteomyelitis (Acute) Hospital Course and Treatment Consultations 02/10/18 14:28 Consult: Onc/Wound/office rn Routine Comment: left thumb infection/ track down to bone Reason for Consult:: see above Procedures: - - right thumb nail removal, nailbed/tissue debridement, bone excision Summary of Care Provided: The patient is a 52 year old M [] Patient is a 52 yo male with injury to right thumb with subsequent sub-ungual hematoma that was decompressed at urgent care , placed on antibiotics, was seen in our office and sent to occupational therapy for debridement/ wound care- was noncompliant with occupational therapy re-seen and noted increased erythema and fluctuance and decision was made to taken to the OR 02/10. In OR noted a subungual abscess that extended and tracked down to his distal phalanx. s/p i&d right thumb , nail removal, debridement and bone excision We sent bone, soft tissue, and culture swab and patient placed on vanco/ ancef per ID consult. Wound care evaluated patient, changed dressing and will set up postop wound center appt. Compressive dressings and dressing changes per wound care. follow up in my office next week. patient sensitivities came back and ID rec bactrim 6 wks. pt d/damon home with instructions to follow u w wound care next week and in my office next week as well. Sed rate CRP BMP and CBC ordered, normal. This note was generated with [employer] dictation software. It may contain incorrect words, spelling, and punctuation that were not noted in checking the note before signing. Discharge Diet: No Restrictions - follow up on thursday with wound care for dressing change, call for appt today, see me in office next week, call with concerns Discharge Activity: May Not Drive May shower in (days): 1 Ice area for (Minutes): 20 - Every hour while awake. Weight Bearing Status: Weight bearing as tolerated Keep extremity elevated above heart level: Operative Extremity Call your doctor if your incision/area has: Continuous Slow Oozing, Sudden Increased Bleeding, Increased Pain/ Swelling, Increased Redness, Foul Smelling Discharge Call your doctor if you observe: Fever of 101 or Higher, Coldness, Increased Pain, Numbness or Tingling, Change in Color, Calf discomfort Home Medications: Medications to take at Discharge Hydrocodone Bitart/Apap 5-325 [[place] 5MG-325MG] 1 - 2 tablet PO Q6H PRN PRN 4 Days #40 tablet 02/10/18 Smz/Tmp Ds [Bactrim Ds] 1 tab PO BID 40 Days #80 tab 02/12/18 Following Prescrptions Were Given to Patient: Hydrocodone Bitart/Apap 5-325 [[place] 5MG-325MG] 1 - 2 tablet PO Q6H PRN PRN 4 Days #40 tablet PRN Reason: Pain Smz/Tmp Ds [Bactrim Ds] 1 tab PO BID 40 Days #80 tab Primary Care Physician: Radha Lopez PA [Primary Care Provider] - Please Follow Up With: Rowena Temple, - [phone] Medical Necessity - Tobacco Use Smoking Status: Never smoker Meaningful Use Info Meaningful Use Diagnoses (Choose all that apply): None applicable
[2018-02-12 08:40] VITALS: BP 153/85; PULSE 64; RESP 18; TEMP 36.6; O2SAT 97
--- NOTE | 2018-02-12 08:58 | CASEMGMT ---
RN CM DC planning. Anticipate pt will need to be taught dressing changes. [facility] for Thu[facility]/17[facility]18 @ 0800. On DC appointments in worklist. Will need script for supplies. Chg nurse and pt's nurse updated. Cristina JUDDN RN ACM
--- NOTE | 2018-02-12 10:26 | PN.ID_ITS ---
Patient Problems: Active and Suspected Problems Subungual abscess (Acute) Cellulitis (Acute) Nail avulsion, finger (Acute) Osteomyelitis (Acute) Subjective: Some pain in R thumb, no fever, no n/v/d. - Physical Exam General: Alert, Cooperative, No apparent distress Lungs: Clear to auscultation, Normal air movement Cardiovascular: Regular rate, Regular Rhythm Abdomen: Soft, Non Tender, Non-Distended Skin: Incision - bandaged R thumb Vital Signs Temp Pulse Resp BP Pulse Ox 97.8 F 64 18 153/85 H 97 02/12/18 08:40 02/12/18 08:40 02/12/18 08:40 02/12/18 08:40 02/12/18 08:40 Oxygen Delivery Method Room Air Weight: 73.2 kg Body Mass Index (BMI) 26.8 Intake and Output for Last 24 Hours 02/10/18 02/11/18 02/12/18 23:59 23:59 23:59 Intake Total 1150 / 1150 1061 / 1061 1157 / 1157 Output Total 900 / 900 950 / 950 Balance 250 / 250 111 / 111 1157 / 1157 Microbiology Past 72 Hours 02/10/18 14:00 Gram Stain - Final Tissue - Hand Wound Culture - Final Staphylococcus aureus Anaerobic Culture - Preliminary Checking for anaerobes, further studies to follow. 02/10/18 14:00 Gram Stain - Final Wound Drainage - Hand Wound Culture - Final Staphylococcus aureus Anaerobic Culture - Preliminary Checking for anaerobes, further studies to follow. 02/10/18 14:00 Gram Stain - Final Wound Abcess - Right Hand Wound Culture - Final Staphylococcus aureus Anaerobic Culture - Preliminary Checking for anaerobes, further studies to follow. Medical Necessity - Tobacco Use Smoking Status: Never smoker Route of nutrition/ use of supplements: [] Nutritional Intake: [] IV Site: [] Aranda Catheter: [] - Assessment/Plan Antibiotics: [] Assessment/Plan: [] Active and Suspected Problems Subungual abscess (Acute) Cellulitis (Acute) Nail avulsion, finger (Acute) Osteomyelitis (Acute) R thumb MSSA osteomyelitis - 01/07/18 wound cx at [facility] urgent care (+) for strep intermedius. Now s/p OR debridement 02/[address] Temple. Surg cx here showing heavy MSSA. Ok for d/c home po bactrim DS bid for 6 week course, stop date 03/25/18. Wrote rx for bmp, cbc, and esr in one week. I gave him my card if he has any problems. Will follow, d/w case finisher.
[2018-02-12] MEDS: Smz/Tmp Ds Tablet 1 TABLET PO (11:00)
== END 2018-02-12 11:20 | disposition home or self-care (01) | DRG 517 ==
LOC: SDC 15:09 → MS2 02-11 08:44
PROVIDERS: Admitting Provider Orthopaedic Surgery; Family Provider Physician Assistant; PCP Physician Assistant; Visit Provider Orthopaedic Surgery
PROC: 0PBS0ZZ Excision of Left Thumb Phalanx, Open Approach (ICD-10-PCS; principal; 2018-02-10 12:30)
DX: M86.141 Other acute osteomyelitis, right hand (principal); B95.61 Methicillin susceptible Staphylococcus aureus infection as the cause of diseases classified elsewhere; L03.011 Cellulitis of right finger; S61.309A Unspecified open wound of unspecified finger with damage to nail, initial encounter; X58.XXXA Exposure to other specified factors, initial encounter; Y93.9 Activity, unspecified; Y99.9 Unspecified external cause status; Y92.9 Unspecified place or not applicable; E78.00 Pure hypercholesterolemia, unspecified; Z91.19 Patient's noncompliance with other medical treatment and regimen; Z94.7 Corneal transplant status; Z86.2 Personal history of diseases of the blood and blood-forming organs and certain disorders involving the immune mechanism
CPT/HCPCS: 36415; 80048; 85025; 85652; 86140; 87015; 87070; 87075; 87077; 87102; 87116; 87186; 87205; 87206; 88304; 88311; 88312; 93005; 97802; J7120; A4216

== ENCOUNTER 2018-02-18 15:23 | Outpatient (RCR) | payer OTHER, SELFPAY ==
[2018-02-18 16:01] VITALS: BP 132/87; PULSE 67; RESP 18; TEMP 36.6; BMI 59.1
--- NOTE | 2018-02-24 14:32 | HP.PCM_ITS ---
(1) Contusion of right thumb with damage to nail Status: Acute Qualifiers: Code(s): S60.111A - Contusion of right thumb with damage to nail, initial encounter (2) Nail avulsion, finger Status: Acute Qualifiers: Code(s): S61.309A - Unspecified open wound of unspecified finger with damage to nail, initial encounter (3) Osteomyelitis Status: Acute Qualifiers: Code(s): M86.9 - Osteomyelitis, unspecified History of Present Illness Date of Service: 02/18/18 Chief Complaint: Wound consultation contusion right thumb status post cellulitis and osteomyelitis. History of Wound: This is a 52-year-old white male who presents for a wound care consultation for a right thumb injury. He denies any significant past medical history. His initial injury occurred in December after he hit his right thumbnail on a pickup truck. He was seen at an urgent care where the subungual hematoma that developed was decompressed and was placed on antibiotics. He was seen by orthopedics and sent to occupational therapy but was noncompliant and due to an increase in erythema and fluctuance was taken to the OR on 02/10/2018. In the OR the abscess was incised and drained and the nail was removed and a bone excision was done.R thumb culture demonstrated MSSA osteomyelitis and infectious disease was consulted and placed the patient on 6 weeks of Bactrim. Patient is currently taking the antibiotics appropriately. He states that he has been covering the thumb with a compressive dressing at work. He denies any increase in pain and denies any numbness, tingling, redness, swelling, or purulent drainage. Past Medical History Surgical History: no surgical history Allergies/Adverse Reactions: Allergies No Known Allergies Allergy (Verified 02/18/18 16:22) Home Medications: Ambulatory Orders Medication Instructions Recorded Hydrocodone Bitart/Apap 5-325 1 - 2 tablet PO Q6H PRN PRN 4 Days 02/10/18 [[place] 5MG-325MG] #40 tablet Smz/Tmp Ds [Bactrim Ds] 1 tab PO BID 40 Days #80 tab 02/12/18 Smoking Status: Never smoker Review of Systems Constitutional: Denies: Chills, Fever, Weight Change Eyes: Denies: Pain, Vision Change HEENT: Denies: Difficulty Hearing, Difficulty Swallowing, Sinus Congestion Cardiovascular: Denies: Chest Pain, Palpitations Respiratory: Denies: Cough, Shortness of Breath Gastrointestinal: Denies: Diarrhea, Nausea, Vomiting Genitourinary: Denies: Dysuria, Hematuria Skin: Reports: Wounds - See HPI Endocrine: Denies: Heat/ Cold Intolerance, Polydipsia, Polyuria Hematologic/ Lymphatic: Denies: Easy Bruising, Easy Bleeding - Physical Exam Vital Signs Temp Pulse Resp BP 97.9 F 67 18 132/87 H 02/18/18 16:01 02/18/18 16:01 02/18/18 16:01 02/18/18 16:01 General: Alert, Oriented x3, Cooperative, No apparent distress HEENT: Atraumatic Oral: Moist Mucosa Neck: Supple Lungs: Clear to auscultation, Normal air movement Cardiovascular: Regular rate, Regular Rhythm Abdomen: Bowel Sounds Present Extremities: No clubbing, No cyanosis, No edema Skin: - - Right thumb, minimal erythema present at the distal end of thumb, granula Corinne tissue scabbed over the nailbed, no erythema, edema, calor, or discharge noted. Small amount of tenderness on palpation. Diminished flexion and extension due to tenderness. No signs of systemic or localized infection at this time. Debridement Note Post-Debridement Measurements/Treatment WC - Nurse 2 - General Ulcer CM Notes Start: 02/18/18 15:59 Freq: Status: Active Protocol: Activity Type Activity Date Activity User E-Sign Co-Sign Detail Recorded Client Recorded Date Recorded By Document 02/18/18 17:30 DV [id number] 02/18/18 17:37 DV 02/18/18 17:30 Wound Center Nurse 2 #1 R Thumb -Time 17:30 -Correct Patient Yes -Correct Side, Site, Position Yes -Procedure Performed No -Post Debridement Size (cm) - Length 1.0 -Post Debridement Size (cm) - Width 1.5 -Post Debridement Size (cm) - Depth 0.1 -Total Square Cm 1.50 -Wound/Ulcer Outcome Not Healed -Ulcer Cleansing Rinsed/ Irrigated with Saline -Foul Odor after Cleansing No -Bioengineered Tissue No -Bleeding Controlled with NA Pain Scale: 0-10 Numeric Is Patient Pain Free? Yes No debridement was completed today Assessment/Plan Assessment: See above diagnoses Plan: The patient was seen and examined at the wound center today and was updated on the plan of care. No debridement indicated today, the patients wound care will consist of: Covering the affected thumb with Adaptic gauze and splint. Patient to follow-up with occupational therapy for range of motion exercises. Patient to continue following up with orthopedics. Previous cultures reviewed and demonstrated MSSA osteomyelitis, patient educated on the importance of continuing the antibiotics given to him from infectious disease. Educated on red flag symptoms that require urgent medical attention. Patient educated on the importance of diet on wound healing and instructed to increase protein and vitamin C intake. Patient verbalized understanding. Patient will follow up at wound healing center in 2 week or sooner if needed. This note was generated with [employer] dictation software. It may contain incorrect words, spelling, and punctuation that were not noted in checking the note before signing. Code Visit Office Visits / Consults: [id number] OV L4 Est
== END 2018-02-25 23:59 ==
LOC: WC 15:23
PROVIDERS: Family Provider Physician Assistant; PCP Physician Assistant; Visit Provider Nurse Practitioner Family
DX: S61.309A Unspecified open wound of unspecified finger with damage to nail, initial encounter (principal); M86.9 Osteomyelitis, unspecified; S60.111A Contusion of right thumb with damage to nail, initial encounter
CPT/HCPCS: 99213; G0463

== ENCOUNTER 2018-03-04 16:05 | Outpatient (RCR) | payer OTHER, SELFPAY ==
[2018-02-26 01:16] VITALS: BP 132/87; PULSE 67; RESP 18; TEMP 36.6
--- NOTE | 2018-03-04 19:54 | PCM.WC.PN ---
(1) Contusion of right thumb with damage to nail Status: Acute Qualifiers: Code(s): S60.111A - Contusion of right thumb with damage to nail, initial encounter (2) Nail avulsion, finger Status: Acute Qualifiers: Code(s): S61.309A - Unspecified open wound of unspecified finger with damage to nail, initial encounter (3) Osteomyelitis Status: Acute Qualifiers: Code(s): M86.9 - Osteomyelitis, unspecified Type of Wound Date of Service: 03/04/18 Chief Complaint: Wound consultation contusion right thumb status post cellulitis and osteomyelitis. History of Wound: This is a 52-year-old white male who presents for a wound care consultation for a right thumb injury. He denies any significant past medical history. His initial injury occurred in December after he hit his right thumbnail on a pickup truck. He was seen at an urgent care where the subungual hematoma that developed was decompressed and was placed on antibiotics. He was seen by orthopedics and sent to occupational therapy but was noncompliant and due to an increase in erythema and fluctuance was taken to the OR on 02/10/2018. In the OR the abscess was incised and drained and the nail was removed and a bone excision was done.R thumb culture demonstrated MSSA osteomyelitis and infectious disease was consulted and placed the patient on 6 weeks of Bactrim. Patient is currently taking the antibiotics appropriately. He states that he has been covering the thumb with a compressive dressing at work. He denies any increase in pain and denies any numbness, tingling, redness, swelling, or purulent drainage. Progress of Wound: Right thumb nail is healed, without signs of infection. Continues ABX per ID and following up with Ortho and OT. Will be discharged from [facility] with adaptic and gauze to be applied daily x 2 weeks. No signs of systemic infection at this time. Negative ROS - Physical Exam Vital Signs Temp Pulse Resp BP 97.9 F 67 18 132/87 H 02/26/18 01:16 02/26/18 01:16 02/26/18 01:16 02/26/18 01:16 General: Alert, Oriented x3, Cooperative, No apparent distress HEENT: Atraumatic Lungs: Clear to auscultation Cardiovascular: Regular rate Skin: Ulcer/ Wound - right thumb nail removed, dry skin present, full ROM and sensation intact Neurological: Neuro grossly intact Psych/Mental Status: Normal Affect, Alert and oriented to time, place, person, mood and affect Debridement Note No debridement was completed today Assessment/Plan Assessment: See above diagnoses Plan: The patient was seen and examined at the wound center today and was updated on the plan of care. No debridement indicated today, the patients wound care will consist of: Covering the affected thumb with Adaptic and gauze x 2 more weeks and discharged from [facility] as he is healed. Patient to follow-up with occupational therapy for range of motion exercises. Patient to continue following up with orthopedics. Previous cultures reviewed and demonstrated MSSA osteomyelitis, patient educated on the importance of continuing the antibiotics given to him from infectious disease. Educated on red flag symptoms that require urgent medical attention. Patient educated on the importance of diet on wound healing and instructed to increase protein and vitamin C intake. Patient verbalized understanding. Patient will follow up at wound healing center as needed. This note was generated with [employer] dictation software. It may contain incorrect words, spelling, and punctuation that were not noted in checking the note before signing. Code Visit Office Visits / Consults: [id number] OV L2 Est
--- NOTE | 2018-03-10 10:58 | PN.PCM_ITS ---
(1) Contusion of right thumb with damage to nail Status: Acute Qualifiers: Code(s): S60.111A - Contusion of right thumb with damage to nail, initial encounter (2) Nail avulsion, finger Status: Acute Qualifiers: Code(s): S61.309A - Unspecified open wound of unspecified finger with damage to nail, initial encounter (3) Osteomyelitis Status: Acute Qualifiers: Code(s): M86.9 - Osteomyelitis, unspecified Type of Wound Date of Service: 03/04/18 Chief Complaint: Wound consultation contusion right thumb status post cellulitis and osteomyelitis. History of Wound: This is a 52-year-old white male who presents for a wound care consultation for a right thumb injury. He denies any significant past medical history. His initial injury occurred in December after he hit his right thumbnail on a pickup truck. He was seen at an urgent care where the subungual hematoma that developed was decompressed and was placed on antibiotics. He was seen by orthopedics and sent to occupational therapy but was noncompliant and due to an increase in erythema and fluctuance was taken to the OR on 02/10/2018. In the OR the abscess was incised and drained and the nail was removed and a bone excision was done.R thumb culture demonstrated MSSA osteomyelitis and infectious disease was consulted and placed the patient on 6 weeks of Bactrim. Patient is currently taking the antibiotics appropriately. He states that he has been covering the thumb with a compressive dressing at work. He denies any increase in pain and denies any numbness, tingling, redness, swelling, or purulent drainage. Progress of Wound: Right thumb nail is healed, without signs of infection. Continues ABX per ID and following up with Ortho and OT. Will be discharged from [facility] with adaptic and gauze to be applied daily x 2 weeks. No signs of systemic infection at this time. Negative ROS - Physical Exam Vital Signs Temp Pulse Resp BP 97.9 F 67 18 132/87 H 02/26/18 01:16 02/26/18 01:16 02/26/18 01:16 02/26/18 01:16 General: Alert, Oriented x3, Cooperative, No apparent distress HEENT: Atraumatic Lungs: Clear to auscultation Cardiovascular: Regular rate Skin: Ulcer/ Wound - right thumb nail removed, dry skin present, full ROM and sensation intact Neurological: Neuro grossly intact Psych/Mental Status: Normal Affect, Alert and oriented to time, place, person, mood and affect Debridement Note No debridement was completed today Assessment/Plan Assessment: See above diagnoses Plan: The patient was seen and examined at the wound center today and was updated on the plan of care. No debridement indicated today, the patients wound care will consist of: Covering the affected thumb with Adaptic and gauze x 2 more weeks and discharged from [facility] as he is healed. Patient to follow-up with occupational therapy for range of motion exercises. Patient to continue following up with orthopedics. Previous cultures reviewed and demonstrated MSSA osteomyelitis, patient educated on the importance of continuing the antibiotics given to him from infectious disease. Educated on red flag symptoms that require urgent medical attention. Patient educated on the importance of diet on wound healing and instructed to increase protein and vitamin C intake. Patient verbalized understanding. Patient will follow up at wound healing center as needed. This note was generated with [employer] dictation software. It may contain incorrect words, spelling, and punctuation that were not noted in checking the note before signing. Code Visit Office Visits / Consults: [id number] OV L2 Est
== END 2018-03-27 23:59 ==
LOC: WC 16:05
PROVIDERS: Family Provider Physician Assistant; PCP Physician Assistant; Visit Provider Nurse Practitioner Family
DX: S60.111A Contusion of right thumb with damage to nail, initial encounter (principal); W22.09XA Striking against other stationary object, initial encounter; M86.141 Other acute osteomyelitis, right hand; B95.61 Methicillin susceptible Staphylococcus aureus infection as the cause of diseases classified elsewhere; Z91.19 Patient's noncompliance with other medical treatment and regimen
CPT/HCPCS: 99212; G0463

== ENCOUNTER → 2019-08-08 16:16 | Outpatient (CLI) | payer OTHER, SELFPAY ==
--- NOTE | 2019-08-08 16:33 | EKG12_ITS ---
Test Reason : PREOP Blood Pressure : / mmHG Vent. Rate : 061 BPM Atrial Rate : 061 BPM P-R Int : 144 ms QRS Dur : 088 ms QT Int : 390 ms P-R-T Axes : 041 024 037 degrees QTc Int : 392 ms Normal sinus rhythm Normal ECG Confirmed by RAFAEL LAM, ADITI ([id number]), order editor SHOAIB BROOKS ([id number] on 08/10/2019 9:42:03 AM Referred By: Garfield Griffin Confirmed By:ADITI HALL MD
[2019-08-08 18:05] LABS: BUN 24 mg/dL (7-18); Creatinine, Serum 1.23 mg/dL (0.70-1.30); Glucose 99 mg/dL (74-106)
[2019-08-08 18:06] LABS: Anion Gap 8 (5-15); BUN/Creat Ratio 19.5 RATIO (10-20); Calcium,Total 8.7 mg/dL (8.5-10.1); Chloride 106 mmol/L (98-107); EST Glomerular Filtration Rate 65 mL/min (>60); Est Glom Filt Rate - Afr Amer 79 mL/min (>60); Potassium 4.4 mmol/L (3.5-5.1); Sodium Level 141 mmol/L (136-145)
== END ==
PROVIDERS: Family Provider Physician Assistant; PCP Physician Assistant; Referring Provider Otolaryngology; Visit Provider Otolaryngology
DX: Z01.812 Encounter for preprocedural laboratory examination (principal)
CPT/HCPCS: 36415; 80048; 93005

== ENCOUNTER 2020-12-28 15:55 | Outpatient (RCR) | payer OTHER, SELFPAY | END 2021-03-05 23:59 | LOC: IMMUN 15:55 | PROVIDERS: PCP Physician Assistant; Visit Provider Family Medicine | DX: Z23 Encounter for immunization (principal) | CPT/HCPCS: 0001A; 0002A; 91300 ==

== ENCOUNTER 2024-01-11 16:19 | Emergency (ER) | payer OTHER, SELFPAY ==
[2024-01-11 16:20] VITALS: BP 159/87; PULSE 79; RESP 18; TEMP 37; O2SAT 99; BMI 29.9
--- NOTE | 2024-01-11 16:40 | RAD_ITS ---
INDICATION: pain, injury EXAMINATION/TECHNIQUE: X-RAY - LEFT XR Hand Min 3 Views COMPARISON: None. FINDINGS: Subtle acute nondisplaced fracture of the base of the first distal phalanx with intra-articular extension. No blastic or lytic lesions. Mild scattered degenerative changes. Soft tissue swelling of the first digit. RAD/Hand Min 3 Views IMPRESSION: Acute nondisplaced fracture of the base of the first distal phalanx with intra-articular extension. Electronically Signed: Ortiz Trivedi MD at 17:10 EDT ,
[2024-01-11] MEDS: Lidocaine 1% (20 ml mdv) 20 ML Vial 10 ML INFILT (17:27)
[2024-01-11] MEDS: Diphth,Pertuss(Acell),Tet Vac 0.5 ML Vial IM (17:28)
--- NOTE | 2024-01-11 17:28 | EX.ED.UPPERE ---
HPI <AMADOU Reese - Last Filed: 01/11/24 19:23> History of Present Illness Chief Complaint: Upper Extremity Injury Narrative Narrative: Patient presenting today with an laceration to his left thumb that he sustained while working with wood this evening. His brother threw a piece of chopped wood into a bin but accidentally hit his finger. He is unsure when his last tetanus was updated. He denies any other injury. He is right-handed. PFSH <AMADOU Reese - Last Filed: 01/11/24 19:23> PFSH Home Medications hydrocodone-acetaminophen 5-325mg 5mg-325mg 1 - 2 tab PO Q6H PRN PRN Pain 4 days ##40 02/10/18 [Rx Last Taken Unknown] sulfamethoxazole 800 mg-trimethoprim 160 mg tablet 1 tab PO BID 40 days #80 tabs 02/12/18 [Rx Last Taken Unknown] cephalexin 500 mg capsule 500 mg PO Q6 7 days #28 CAPSULES 01/11/24 [Rx Last Taken Unknown] Allergy/AdvReac Type Severity Reaction Status Date / Time No Known Allergies Allergy Verified 01/11/24 16:19 Surgical History Cornea transplant recipient Social History Smoking Status: Never smoker ROS <AMADOU Reese - Last Filed: 01/11/24 19:23> ROS ED Constitutional Constitutional ED: Denies chills or fever(s) Cardiovascular Cardiovascular: Denies chest pain Respiratory/Chest Respiratory/Chest: Denies cough or dyspnea Gastrointestinal Gastrointestinal: Denies abdominal pain, nausea or vomiting Musculoskeletal Musculoskeletal: Reports arthralgias Integumentary Reports laceration Neurologic Neurologic: Denies paresthesias or weakness EXAM <AAMDOU Reese - Last Filed: 01/11/24 19:23> Physical Exam Const Vital Signs: 01/11/24 16:20 Temperature 98.6 F Temperature Source Temporal Pulse Rate 79 Respiratory Rate 18 Blood Pressure 159/87 H Blood Pressure Mean 111 Pulse Ox 99 Oxygen Delivery Method Room Air Positive well nourished, well developed and no apparent distress General Appearance ED: well developed HEENT Reports normocephalic and head/scalp atraumatic Mouth ED: Yes moist mucous membranes normal Eyes PERRL and EOMs intact bilaterally Neck full ROM and supple Chest Wall inspection of chest normal Resp normal respiratory effort and clear to auscultation bilaterally Cardio regular rate and regular rhythm GI soft to palpation, non-tender, non-distended and no masses Back/Spine normal ROM and normal to inspection Extremity normal to inspection and full ROM Extremity Narrative: 2.5 cm full-thickness laceration to the lateral aspect of the left thumb. Full flexion and extension at the MCP and IP joint, left radial pulse 2+, good capillary refill, sensation intact. Neuro oriented x3, CN's II-XII intact bilaterally, moves all extremities, no focal motor deficits and no sensory deficits noted Sensorium / Orientation: awake and alert Psych mental status grossly normal and thought process normal [facility] <AMADOU Reese - Last Filed: 01/11/24 19:23> [facility] Narrative Medical decision making narrative: Patient presenting due to a laceration to his left thumb that occurred this evening when his brother threw a heavy piece of wood into a bin but accidentally hit patient's finger. He does not have any other injuries. Tetanus will be updated. There is a 2.5 centimeter full-thickness linear laceration to the lateral aspect of the thumb. Full flexion extension at the MCP and IP joints. X-ray shows an acute nondisplaced fracture at the base of the first distal phalanx with intra-articular extension. Tetanus was copiously irrigated with saline, cleaned with chlorhexidine, sutured, and bandaged with bacitracin ointment. He was placed in a thumb spica splint. Given the fracture, he will be treated with Keflex with first dose here. I have given him an orthopedic referral. Wound care instructions discussed. He is to have stitches out in 7 days. He will be discharged home in stable condition and is comfortable with plan. Radiography X-Ray: Read by ED Physician and Read by Radiologist Diagnostic Testing: Clinical Impression(s) from Imaging Studies Hand X-Ray 01/11/24 16:40 IMPRESSION: Acute nondisplaced fracture of the base of the first distal phalanx with intra-articular extension. Electronically Signed: Ortiz Trivedi MD at 17:10 EDT , <Magdiel Miller MD - Last Filed: 01/11/24 23:27> [facility] Narrative Medical decision making narrative: Patient presenting due to a laceration to his left thumb that occurred this evening when his brother threw a heavy piece of wood into a bin but accidentally hit patient's finger. He does not have any other injuries. Tetanus will be updated. There is a 2.5 centimeter full-thickness linear laceration to the lateral aspect of the thumb. Full flexion extension at the MCP and IP joints. X-ray shows an acute nondisplaced fracture at the base of the first distal phalanx with intra-articular extension. Tetanus was copiously irrigated with saline, cleaned with chlorhexidine, sutured, and bandaged with bacitracin ointment. He was placed in a thumb spica splint. Given the fracture, he will be treated with Keflex with first dose here. I have given him an orthopedic referral. Wound care instructions discussed. He is to have stitches out in 7 days. He will be discharged home in stable condition and is comfortable with plan. Dr. Miller: I have personally performed a face to face assessment of the patient and have reviewed the ANTHONY Note. I performed a substantive portion of the visit including all aspects of the following. My odom findings include: History is crush injury to left thumb while disposing of wood. Exam is GCS 15. ABCs intact. Positive laceration to lateral aspect of left thumb. Positive tenderness to palpation. Good capillary refill. Medical Decision Making: Check x-ray. X-ray and interpreted by myself independently shows a nondisplaced fracture that goes intra-articularly in the tuft of the left thumb. I reviewed the radiology report which confirms my independent interpretation. Laceration repair. Given that this could be considered an open fracture, patient will be placed on antibiotics and in a thumb spica splint for follow-up with orthopedics. Discharge. Other additions or changes: [None] History & Record Review Discussion w/independent historian: Patient Procedures <AMADOU Reese - Last Filed: 01/11/24 19:23> Lacerations Laceration: Length: 0.98 in Depth: Sub Q Shape: Linear Laceration repair: Irrigated and Lidocaine Number of Sutures/[place]: 5 Suture Information: Ethilon, Simple and 5-0 Discharge Plan Triage Chief Complaint: Upper Extremity Injury ED Midlevel Provider: Neyda Mack ED Provider: Magdiel Miller Dx/Rx/DC Orders Clinical Impression: Fracture of thumb, Laceration of thumb Instructions: ED Laceration Extremity, ED Fracture, Thumb Prescriptions: New cephalexin 500 mg capsule 500 mg PO Q6 7 Days Qty: 28 0RF No Action hydrocodone-acetaminophen 1 TABLET tablet 1 - 2 tab PO Q6H PRN PRN (Reason: Pain) 4 Days Qty: 40 0RF sulfamethoxazole-trimethoprim 1 TABLET tablet 1 tab PO BID 40 Days Qty: 80 0RF Primary Care Provider: Radha Lopez Referrals: Henry Arteaga MD [Med Staff - Active Staff] - 7 Days for suture removal Radha Lopez PA [Primary Care Provider] - Activity Restrictions/Additional Instructions: Have sutures removed in 7 days. Please follow-up with your PCP and return for any signs of infection. I have also given you an orthopedic referral. Disposition Disposition: Home, Self Care Discharge Date/Time: 01/11/24 18:37
[2024-01-11 18:30] VITALS: BP 146/75; PULSE 71; RESP 17; TEMP 36.6; O2SAT 97
[2024-01-11] MEDS: Cephalexin 250 MG Capsule 500 MG PO (18:37)
== END 2024-01-11 18:37 | disposition home or self-care (01) ==
PROVIDERS: Emergency Provider Emergency Medicine; PCP Physician Assistant; Visit Provider Emergency Medicine
DX: S62.525B Nondisplaced fracture of distal phalanx of left thumb, initial encounter for open fracture (principal); W20.8XXA Other cause of strike by thrown, projected or falling object, initial encounter; Z23 Encounter for immunization
CPT/HCPCS: 12001; 73130; 90715; 99284

== ENCOUNTER 2024-07-04 11:11 | Emergency (ER) | payer OTHER, SELFPAY ==
[2024-07-04 11:12] VITALS: BP 160/75; PULSE 75; RESP 18; TEMP 36.6; O2SAT 100; BMI 29.2
[2024-07-04 11:24] VITALS: BMI 29.5
--- NOTE | 2024-07-04 11:31 | EX.ED.DYSGE1 ---
HPI History of Present Illness Chief Complaint: Neuro S/Sx Narrative Narrative: Patient is a 59-year-old male with past medical history hypercholesterolemia, hypertension who presents to the emergency department with a chief complaint of left facial abnormality and difficulty closing his left eye. He states that his symptoms started on Thursday morning when he woke up and noted that was progressive throughout the weekend however he states that he presented today secondary to some pain in his left eye and inability to fully close this. He states that he does not wear contacts. He denies any injury to his eye. Patient states he has never had anything like this happen before. PFSH PFSH Home Medications ?Medication ?Instructions ?Recorded ?Last Taken ?Type hydrocodone-acetaminophen 5-325mg 1 - 2 tab PO Q6H PRN PRN Pain 4 02/10/18 Unknown Rx 5mg-325mg days ##40 sulfamethoxazole 800 1 tab PO BID 40 days #80 tabs 02/12/18 Unknown Rx mg-trimethoprim 160 mg tablet cephalexin 500 mg capsule 500 mg PO Q6 7 days #28 CAPSULES 01/11/24 Unknown Rx acyclovir 400 mg tablet 400 mg PO Q6H 7 days #28 tabs 07/04/24 Unknown Rx artificial 1 drp LEFT EYE Q4H PRN dry eyes 07/04/24 Unknown Rx tears([id number]-rwldljxc-puknasy) #15 mL 0.1 %-0.3 %-0.2 % eye drops prednisone 5 mg tablets in a dose See Rx Instructions PO .COMPLEX 07/04/24 Unknown Rx pack #48 tabs Allergy/AdvReac Type Severity Reaction Status Date / Time No Known Allergies Allergy Verified 07/04/24 11:14 Surgical History Cornea transplant recipient Social History Smoking Status: Never smoker ROS ROS ED ROS Narrative Constitutional: Denies rashes lesions, fevers, chills Eyes: Complains of some left eye discomfort as noted above and difficulty closing his left eye denies any changes in vision Cardiovascular: Denies chest pain or palpitations Respiratory: Denies coughing wheezing shortness of breath Abdomen: Denies abdominal pain nausea vomit diarrhea : Denies urinary symptoms Neurological: Complains of left-sided facial droop as noted above difficulty closing his left eye Musculoskeletal: Denies back pain Skin: Denies rashes or lesions, denies any possibility of ticks being on him recently EXAM Physical Exam Narrative Exam Narrative: General: Patient lying in bed rest comfortably did not appear to be acute distress Head: Atraumatic, normocephalic Eyes: PERRL bilateral, EOMI bilateral, no conjunctival injection noted. Patient cannot fully close his left eye Neck: Soft, supple, trachea midline Cardiovascular: Regular rate and rhythm no murmurs gallops rubs noted Respiratory: Clear to auscultation bilaterally Abdomen: No tenderness palpation Extremities: +5/5 strength noted in the bilateral lower extremities, no pedal edema no exam, radial pulses +2/4 in the bilateral extremities Neurological: Patient is unable to wrinkle the left side of his forehead, completely close his left eye. Patient following commands knew that he was at [facility] year is 2023. NIH of 0 GCS 15 Skin: Warm, dry, intact Const Vital Signs: 07/04/24 11:12 07/04/24 13:12 07/04/24 14:17 Temperature 98 F 97.6 F L Temperature Source Temporal Pulse Rate 75 57 L 57 L Respiratory Rate 18 16 Blood Pressure 160/75 H 131/71 H 131/71 H Blood Pressure Mean 103 91 91 Pulse Ox 100 96 96 Oxygen Delivery Method Room Air Room Air MDM MDM MDM Narrative Medical decision making narrative: Patient is a 59-year-old male who presents to the emergency department with chief complaint of left-sided facial droop, and inability to close left eye. Patient will have a workup performed here on the differential diagnose includes but not limited to Ernandez's palsy, corneal abrasion. Once workup is obtained reviewed he will be reevaluated. Patient's eye was stained here in the emerged part with no evidence of corneal abrasion. Intraocular pressure was normal in the left eye. Patient be prescribed prednisone, acyclovir, artificial tears, eye patch and was instructed to tape his eye shut especially at nighttime. He is encouraged to follow-up with the health informatics instructor as well as his primary care physician outpatient setting. He is encouraged return with worsening symptoms or other concerns. He would like to go home all question concerns answered he is discharged home in stable condition. Discharge Plan Triage Chief Complaint: Neuro S/Sx ED Provider: Raf Lilly Dx/Rx/DC Orders Clinical Impression: Ernandez's palsy Prescriptions: New acyclovir 400 mg tablet 400 mg PO Q6H 7 Days Qty: 28 0RF prednisone 5 mg tablets,dose pack See Rx Instructions .ROUTE .COMPLEX Qty: 48 0RF Rx Instructions: orally per package directions artificial tear([id number]-[id number]) 0.1-0.3-0.2 % drops 1 drp LEFT EYE Q4H PRN (Reason: dry eyes) Qty: 15 0RF No Action hydrocodone-acetaminophen 1 TABLET tablet 1 - 2 tab PO Q6H PRN PRN (Reason: Pain) 4 Days Qty: 40 0RF sulfamethoxazole-trimethoprim 1 TABLET tablet 1 tab PO BID 40 Days Qty: 80 0RF cephalexin 500 mg capsule 500 mg PO Q6 7 Days Qty: 28 0RF Primary Care Provider: Radha Lopez Referrals: Radha Lopez PA [Primary Care Provider] - Activity Restrictions/Additional Instructions: Follow-up with your primary care physician outpatient setting. Take medicines as prescribed. Return with worsening symptoms or other concerns. Follow-up with your health informatics instructor in outpatient setting. Tape your eye shut at night. Print Language: Upper Sorbian Disposition Disposition: Home, Self Care
[2024-07-04] MEDS: Fluorescein 1 MG STRIP 1 STRIP LEFT EYE (12:20)
[2024-07-04] MEDS: Tetracaine 0.5% Ophthalmic Bottle 1 DRP LEFT EYE (12:21)
[2024-07-04 13:12] VITALS: BP 131/71; PULSE 57; O2SAT 96
[2024-07-04 14:17] VITALS: BP 131/71; PULSE 57; RESP 16; TEMP 36.4; O2SAT 96
== END 2024-07-04 14:44 | disposition home or self-care (01) ==
PROVIDERS: Emergency Provider Emergency Medicine; PCP Physician Assistant; Visit Provider Emergency Medicine
DX: G51.0 Bell's palsy (principal); I10 Essential (primary) hypertension; E78.00 Pure hypercholesterolemia, unspecified; Z79.899 Other long term (current) drug therapy; Z94.7 Corneal transplant status
CPT/HCPCS: 99282